=== PATIENT | male | born 1980 | race African-American/Black ===

== ENCOUNTER 2017-02-07 11:50 | Emergency (ER) | payer SELFPAY ==
[2017-02-07] MEDS: ONDANSETRON HCL/PF 4 MG/ 2ML VIAL IM ONE (12:35)
[2017-02-07] MEDS: KETOROLAC TROMETHAMINE 60 MG/2 ML VIAL IM ONE (12:35)
--- NOTE | 2017-02-07 12:51 | ED Physician Documentation ---
General Adult - HISTORIAN Historian: patient - HPI Stated Complaint: MILLER x3 days Chief Complaint: General Adult Onset: days ago (3) Timing: still present Severity: moderate Further Comments: yes (Pt is a 36 yo aa male with a headache x 3 days. Pt states that he has never had a headache like this. Pt has had nausea and photophobia. Pt states he has been taking fluids well. Headadche is on the L side. Pt has no neck pain. Pt had had chills and sweats earlier in the week, with congestion, cough and runny nose.) - ROS CONST: chills EYES/ENT: none CVS/RESP: none GI/: nausea MS/SKIN/LYMPH: none NEURO/PSYCH: headache - PAST HX Past History: none Allergies/Adverse Reactions: Allergies Allergy/AdvReac Type Severity Reaction Status Date / Time No Known Allergies Allergy Verified 02/07/17 12:07 Home Medications: Ambulatory Orders Medication Instructions Recorded NK [NK] 02/07/17 - SOCIAL HX Smoking History: cigarettes Alcohol Use: none Drug Use: none - FAMILY HX Family History: No - VITAL SIGNS Vital Signs: Vital Signs Temp Pulse Resp BP Pulse Ox 98.2 F 63 16 143/93 94 02/07/17 12:30 02/07/17 12:30 02/07/17 12:30 02/07/17 12:30 02/07/17 12:30 - REVIEWED ASSESSMENTS Nursing Assessment Reviewed: Yes Vitals Reviewed: Yes Progress - Progress Progress: Toradol 60 mg IM Zofran 4 mg IM improved - EKG/XRAY/CT CT: CT head w/o contrast: neg ED Results Lab/Radiology - Orders Orders: ED Orders Category Date Time Status CT BRAIN W/O CONTRAST Stat Exams 02/07/17 Taken Ketorolac Tromethamine [Toradol] Med 02/07/17 12:27 Discontinued 60 mg IM NOW ONE Ondansetron HCl/Pf [Zofran 4 mg/2 ml] Med 02/07/17 12:28 Discontinued 4 mg IM NOW ONE General Adult Physical Exam - PHYSICAL EXAM GENERAL APPEARANCE: moderate distress EENT: eye inspection normal, pharynx normal NECK: normal inspection, supple RESPIRATORY: no resp distress, chest non-tender, breath sounds normal CVS: reg rate & rhythm, heart sounds normal ABDOMEN: soft, no organomegaly, normal bowel sounds BACK: normal inspection, no CVA tenderness SKIN: warm/dry, normal color EXTREMITIES: non-tender, normal range of motion, no evidence of injury, no edema NEURO: oriented X3, CN's nml as tested, motor nml, sensation nml Discharge Clincal Impression: headache Referrals: Primary Doctor,No [Primary Care Provider] - Condition: Good Disposition: 01 HOME, SELF-CARE Decision to Admit: NO Decision Time: 13:17
[2017-02-07 13:30] VITALS: BP 162/102
--- NOTE | 2017-02-07 13:57 | Diagnostic Imaging Report ---
MONI BEASLEY [facility] [id number] [facility], [facility] [address] [place] [address]. [id number] Report Submission Date: Feb 07, 2017 12:26:21 PM CDT Patient Study Name: ORLY NICOLE Date: Feb 07, 2017 12:12:34 PM CDT Modality Type: CT\SR Gender: M Description: CT BRAIN W/O CONTRAST : 78 Institution: [facility] Physician: MONI BEASLEY Examination: CT head without contrast History: Headache Comparison exam: None available Technique: Noncontrast head CT protocol. Findings: Ventricles and sulci are appropriate for patient age. Cerebrocerebellar parenchyma demonstrates normal attenuation. No evidence for parenchymal hemorrhage. No evidence for mass or mass effect. No midline shift. No extra axial fluid collections. Partial visualization of the paranasal sinuses demonstrate scattered mucous thickening. Mastoid air cells, orbits, skull and scalp without gross irregularity. Impression: No acute parenchymal process. No hemorrhage. Electronically signed on Feb 07, 2017 12:26:21 PM CDT by: Jayant LONG
== END 2017-02-07 13:27 | disposition home or self-care (01) ==
LOC: ED 11:50
DX: R51 Headache (principal)
CPT/HCPCS: 70450; J1885; J2405; 96372; 99283

== ENCOUNTER 2017-04-29 14:14 | Emergency (ER) | payer SELFPAY ==
--- NOTE | 2017-04-29 14:30 | ED Physician Documentation ---
Nausea/Vomiting/Diarrhea - HISTORIAN Historian: patient - HPI Chief Complaint: Nausea,Vomiting,Diarrhea Additional Information: 36 Afican [place] Citizen male with a 6 day history of nausea vomiting, diarrhea. No blood in diarrhea or emisis. Has been couigh, mild productive of clear phlegm. Has been wheezing some. Having some headaches, has been having some body aches. Mild sore throat. Has been able to keep some water and Kenna Fabrice down. Urinating OK. - Associated Symptoms Vomiting: frequent (3 x today). denies: bloody, blood-streaked Diarrhea: copious (6 times), watery. denies: bloody, blood-streaked Abdominal Pain: none - ROS CONST: fever (has not checked), sweating, chills CVS/RESP: chest pain (from coughing) GI/: denies: black stools, bloody urine, bloody stools EYES/ENT: none - PAST HX Past History: none Surgeries/Procedures: none Immunizations: denies: influenza Allergies/Adverse Reactions: Allergies Allergy/AdvReac Type Severity Reaction Status Date / Time No Known Allergies Allergy Verified 04/29/17 14:43 Home Medications: Ambulatory Orders Medication Instructions Recorded NK [NK] 02/07/17 - SOCIAL HX Smoking History: less than 1 pack/day (1/2 ppd) Alcohol Use: none Drug Use: none - FAMILY HX Family History: none - VITAL SIGNS Vital Signs: Vital Signs Temp Pulse Resp BP Pulse Ox 98.3 F 79 20 160/103 98 04/29/17 14:14 04/29/17 14:14 04/29/17 14:14 04/29/17 14:14 04/29/17 14:14 - REVIEWED ASSESSMENTS Nursing Assessment Reviewed: Yes Vitals Reviewed: Yes ED Results Lab/Radiology - Lab Results Lab Results: Lab Results 04/29/17 15:15 WBC 3.10 K/ul L K/ul (4.00-12.00) RBC 5.54 M/ul H M/ul (3.90-5.20) Hgb 13.8 g/dL g/dL (12.0-18.0) Hct 40.8 % % (37.0-53.0) MCV 73.5 fl L fl (80.0-100.0) MCH 24.8 pg L pg (28.0-34.0) MCHC 33.8 g/dL g/dL (30.0-36.0) RDW 15.1 % H % (11.3-14.3) Plt Count 145 K/mm3 K/mm3 (130-400) - Radiology Radiology Impressions: Examination: PA and lateral chest. History: Evaluate lung hill. Findings: PA lateral chest demonstrate a normal cardiac and mediastinal silhouette. No focal infiltrate. No blunting of the costophrenic margins. Osseous structures are appropriate for age. Impression: No acute pulmonary process. - Orders Orders: ED Orders Category Date Time Status Place IV Lock 1T Care 04/29/17 14:40 Active CHEST P.A.&LAT 2 VIEWS [RAD] Routine Exams 04/29/17 Taken CBC/PLATELET/DIFF Routine Lab 04/29/17 15:15 Completed CMP Routine Lab 04/29/17 15:15 Received URINALYSIS Routine Lab 04/29/17 Ordered 0.9 % Sodium Chloride [Normal Saline] 1,000 ml Med 04/29/17 15:00 Ordered IV .Q1H Nausea Physical Exam - EXAM General Appearance: alert, mild distress EENT: eye inspection normal, pharyngeal erythema Neck: normal inspection, thyroid normal, supple Respiratory: no resp distress, breath sounds normal, wheezes (mild expiratory R> L) CVS: reg rate & rhythm, heart sounds normal, equal pulses, no murmur, no gallop Abdomen: no organomegaly, tenderness (mild diffuse in all 4 qudrants) Extremities: non-tender, normal range of motion Neuro/Psych: oriented X3, CN's nml as tested, mood/affect nml, cognition normal Discharge Clincal Impression: Influenza Referrals: Primary Doctor,No [Primary Care Provider] - 2 Days Condition: Stable Disposition: HOME, SELF-CARE Decision to Admit: NO Date of Decison to Admit: 04/29/17 Decision Time: 15:36
[2017-04-29] MEDS ORDERED: 0.9 % SODIUM CHLORIDE 1,000 ML IV ONE (14:48)
[2017-04-29] MEDS: 0.9 % SODIUM CHLORIDE 1,000 ML IV SCH (15:08)
[2017-04-29 15:28] LABS: MEAN CORPUSCULAR HEMOGLOBIN 24.8 pg (28.0-34.0); MEAN CORPUSCULAR VOLUME 73.5 fl (80.0-100.0)
[2017-04-29 15:35] LABS: eGFR (African) > 60; eGFR (Non-African) > 60
[2017-04-29 15:45] LABS: BASOPHILS % 1 % (0-2); EOSINOPHILS % 2 % (0-7); HYPOCHROMASIA 1+ (NEGATIVE); MONOCYTES % 12 % (0-11); SEGMENTED NEUTROPHILS % 40 % (39-79); TARGET CELLS 1+ (NEGATIVE)
--- NOTE | 2017-04-29 15:50 | Diagnostic Imaging Report ---
BILLY CLARK [facility] [address] [facility] [id number] Report Submission Date: Apr 29, 2017 2:58:53 PM SOLAR SYSTEM DESIGNER Patient Study Name: ORLY NICOLE Date: Apr 29, 2017 2:44:58 PM SOLAR SYSTEM DESIGNER Modality Type: CR Gender: M Description: CHEST : 78 Institution: [facility] Physician: BILLY CLARK Examination: PA and lateral chest. History: Evaluate lung hill. Findings: PA lateral chest demonstrate a normal cardiac and mediastinal silhouette. No focal infiltrate. No blunting of the costophrenic margins. Osseous structures are appropriate for age. Impression: No acute pulmonary process. Electronically signed on Apr 29, 2017 2:58:53 PM SOLAR SYSTEM DESIGNER by: Jayant LONG
[2017-04-29 16:23] VITALS: BP 137/78
== END 2017-04-29 16:06 | disposition home or self-care (01) ==
LOC: ED 14:14
DX: J11.2 Influenza due to unidentified influenza virus with gastrointestinal manifestations (principal)
CPT/HCPCS: 71020; 80053; 85025; 96365; 99282; J7030; S1016